=== PATIENT | male | born 1985 | race Caucasian/White ===

== ENCOUNTER 2021-11-30 19:45 | Inpatient (IN) ==
[2021-11-30] MEDS ORDERED: Isovue-370 500 ML BOTTLE IVP ONE (20:02)
[2021-11-30 20:59] LABS: Basophils # 0.1 K/mcL (0.0-0.2); Basophils % 0.5 %; Eosinophils % 0.1 %; Hematocrit 43.4 % (37.5-50.1); Hemoglobin 14.5 g/dL (12.9-16.9); Immature Granulocytes % 1.2 % (0-4); Lymphocytes # 1.2 K/mcL (0.6-4.6); Lymphocytes % 12.2 %; Mean Corpuscular HGB Conc 33.4 g/dL (31.6-35.5); Mean Corpuscular Hemoglobin 27.8 pg (28.0-33.3); Mean Corpuscular Volume 83.3 fL (83.0-100.0); Mean Platelet Volume 11.1 fL (9.4-12.4); Monocytes # 0.9 K/mcL (0.0-1.3); Monocytes % 9.5 %; Neutrophils # 7.3 K/mcL (1.6-8.9); Platelet Count 333 K/mcL (140-400); Red Blood Count 5.21 M/mcL (4.19-5.50); Red Cell Distribution Width 14.3 % (11.5-14.5); Segmented Neutrophils % 76.5 %; White Blood Count 9.5 K/mcL (4.3-11.1)
[2021-11-30 21:13] LABS: INR 1.3; Prothrombin Time 14.7 Seconds (9.4-12.1)
[2021-11-30 21:15] LABS: Activated Partial Thrombo Time 30.3 Seconds (26.0-36.0)
[2021-11-30 21:23] LABS: Alanine Aminotransferase 60 Units/L (7-52); Albumin 3.8 g/dL (3.5-5.7); Alkaline Phosphatase 78 Units/L (34-104); Aspartate Amino Transferase 57 Units/L (13-39); BUN/Creatinine Ratio 14 (6-26); Bilirubin,Direct 0.2 mg/dL (0.0-0.2); Bilirubin,Indirect 1.2 mg/dL (0.0-1.0); Bilirubin,Total 1.4 mg/dL (0.3-1.0); Blood Urea Nitrogen 13 mg/dL (6-20); Calcium 8.7 mg/dL (8.6-10.3); Carbon Dioxide 26 mEq/L (23-29); Chloride 99 mEq/L (98-107); Globulin 3.7 g/dL (2.4-3.5); Glucose 114 mg/dL (70-105); Osmolality,Calculated 291 (280-300); Potassium 4.4 mEq/L (3.5-5.1); Sodium 140 mEq/L (136-145); Total Protein 7.5 g/dL (6.4-8.9); Troponin I < 0.03 ng/mL (< 0.04); eGFR For African Americans > 60 (> 60); eGFR For Non-African Americans > 60 (> 60)
[2021-12-01 00:20] LABS: Influenza A PCR Negative (Negative); Influenza B PCR Negative (Negative); Resp. Syncytial Virus PCR Negative (Negative)
[2021-12-01 00:37] LABS: SARS-CoV-2 by PCR (In House) Positive (Negative)
[2021-12-01] MEDS ORDERED: D5% in Water 1,000 ML IVC PRN (01:18)
[2021-12-01] MEDS ORDERED: *HR* Dextrose 50 % in Water (Syg) 50 ML SYRINGE IVP PRN (01:18)
[2021-12-01] MEDS ORDERED: Dextrose Gel 15 GM/37.5 ML TUBE PO PRN ×2 (01:18)
[2021-12-01] MEDS ORDERED: Naloxone 0.4 MG/ML INJ IVP PRN (01:58)
[2021-12-01] MEDS ORDERED: *HR* HYDROcodone/Acet 5/325 mg TABLET PO PRN (01:58)
[2021-12-01] MEDS ORDERED: Melatonin 3 MG TABLET PO PRN (01:58)
[2021-12-01] MEDS ORDERED: Acetaminophen 325 MG TABLET PO PRN (01:58)
[2021-12-01] MEDS ORDERED: Ondansetron 4 MG/2 ML VIAL IVP PRN (01:58)
[2021-12-01] MEDS ORDERED: *HR* LORazepam 0.5 MG TABLET PO ONE (02:07)
[2021-12-01] MEDS ORDERED: Furosemide 20 MG/2 ML VIAL IVP ONE (02:07)
[2021-12-01 02:46] LABS: ABG Base Excess 2 mEq/L (-2 to 3); ABG HCO3 26 mEq/L (21-27); ABG Oxygen Saturation 95 % (95-98); ABG PCO2 39 mmHg (35-45); ABG PH 7.44 pH Units (7.32-7.45); ABG PO2 71 mmHg (85-104); ABG TCO2 28 mEq/L (20-26); Blood Gas Modality BiLevel
[2021-12-01] MEDS: Ipratropium 1 PUFF INHALER IH SCH ×6 (03:35→20:00)
[2021-12-01] MEDS: Artificial Tears SOLN 15 ML BOTTLE BOTH EYES SCH ×5 (05:03→20:06)
[2021-12-01 05:45] LABS: INR 1.3; Prothrombin Time 14.6 Seconds (9.4-12.1)
[2021-12-01 05:47] LABS: Activated Partial Thrombo Time 27.2 Seconds (26.0-36.0)
[2021-12-01 06:02] LABS: Alanine Aminotransferase 56 Units/L (7-52); Albumin 3.8 g/dL (3.5-5.7); Albumin/Globulin Ratio 1.2 (1.1-2.2); Alkaline Phosphatase 82 Units/L (34-104); Aspartate Amino Transferase 38 Units/L (13-39); BUN/Creatinine Ratio 17 (6-26); Bilirubin,Total 1.4 mg/dL (0.3-1.0); Blood Urea Nitrogen 14 mg/dL (6-20); Calcium 8.8 mg/dL (8.6-10.3); Carbon Dioxide 26 mEq/L (23-29); Chloride 106 mEq/L (98-107); Globulin 3.3 g/dL (2.4-3.5); Glucose 128 mg/dL (70-105); Lactate Dehydrogenase 363 Units/L (140-271); Magnesium 2.1 mg/dL (1.6-2.6); Osmolality,Calculated 284 (280-300); Phosphorous 4.2 mg/dL (2.7-4.5); Potassium 3.6 mEq/L (3.5-5.1); Sodium 136 mEq/L (136-145); Total Protein 7.1 g/dL (6.4-8.9); eGFR For African Americans > 60 (> 60); eGFR For Non-African Americans > 60 (> 60)
[2021-12-01 06:16] LABS: Ferritin 590 ng/mL (20-250)
[2021-12-01 06:22] LABS: Hepatitis B Surface Antigen Nonreactive (Nonreactive)
[2021-12-01 06:51] LABS: Hepatitis B Core IgM Nonreactive (Nonreactive)
[2021-12-01 06:52] LABS: Hepatitis C Virus Antibody Nonreactive (Nonreactive)
[2021-12-01 06:53] LABS: Hepatitis A Antibody IgM Nonreactive (Nonreactive)
[2021-12-01 06:55] LABS: Basophils % 0.4 %; Hematocrit 40.7 % (37.5-50.1); Immature Granulocytes % 1.3 % (0-4); Lymphocytes # 0.8 K/mcL (0.6-4.6); Lymphocytes % 11.3 %; Mean Corpuscular HGB Conc 33.9 g/dL (31.6-35.5); Mean Corpuscular Hemoglobin 28.3 pg (28.0-33.3); Mean Corpuscular Volume 83.4 fL (83.0-100.0); Mean Platelet Volume 11.4 fL (9.4-12.4); Monocytes # 0.6 K/mcL (0.0-1.3); Monocytes % 8.1 %; Neutrophils # 5.9 K/mcL (1.6-8.9); Platelet Count 353 K/mcL (140-400); Red Blood Count 4.88 M/mcL (4.19-5.50); Red Cell Distribution Width 14.4 % (11.5-14.5); Segmented Neutrophils % 78.9 %; White Blood Count 7.4 K/mcL (4.3-11.1)
[2021-12-01 06:58] LABS: Hemoglobin 13.8 g/dL (12.9-16.9)
[2021-12-01] MEDS: Insulin LISPRO 300 UNITS/3 ML VIAL SUBQ SCH ×3 (07:51→16:41)
[2021-12-01] MEDS: Furosemide 40 MG/4 ML VIAL IVP SCH (08:00)
[2021-12-01] MEDS: Saline Nasal Spray 44 ML BOTTLE NS SCH ×5 (08:01→20:07)
[2021-12-01] MEDS: Dexamethasone Sodium Phos/PF 10 MG/ML VIAL IVP SCH (08:01)
[2021-12-01] MEDS: Saliva Stimulant 44.3ml BOTTLE PO SCH ×5 (08:01→20:07)
[2021-12-01] MEDS: lisinopriL 20 MG TABLET PO SCH (08:02)
[2021-12-01] MEDS: Chlorhexidine Rinse 15 ML MOUTHWASH MM SCH ×2 (08:04→20:03)
[2021-12-01] MEDS: *HR* Enoxaparin 40 MG/0.4 ML SYRINGE SQ SCH ×2 (08:04→20:03)
[2021-12-01] MEDS: Cholecalciferol (D-3) 1,000 UNIT (25MCG) TABLET PO SCH (08:05)
[2021-12-01] MEDS: Multivit/Ca/Min/Fe/FA 1 TAB TABLET PO SCH (08:05)
[2021-12-01 09:33] LABS: Basophils % 0.4 %; Hematocrit 44.2 % (37.5-50.1); Hemoglobin 14.3 g/dL (12.9-16.9); Immature Granulocytes % 1.5 % (0-4); Lymphocytes % 13.5 %; Mean Corpuscular HGB Conc 32.4 g/dL (31.6-35.5); Mean Corpuscular Hemoglobin 27.6 pg (28.0-33.3); Mean Corpuscular Volume 85.2 fL (83.0-100.0); Mean Platelet Volume 11.3 fL (9.4-12.4); Monocytes # 0.6 K/mcL (0.0-1.3); Monocytes % 8.5 %; Neutrophils # 5.7 K/mcL (1.6-8.9); Platelet Count 354 K/mcL (140-400); Red Blood Count 5.19 M/mcL (4.19-5.50); Red Cell Distribution Width 14.4 % (11.5-14.5); Segmented Neutrophils % 76.1 %; White Blood Count 7.5 K/mcL (4.3-11.1)
[2021-12-01 09:37] LABS: C-Reactive Protein 48 mg/L (Less than 10)
[2021-12-02] MEDS: Ipratropium 1 PUFF INHALER IH SCH ×7 (00:26→23:24)
[2021-12-02 01:48] LABS: Basophils # 0.1 K/mcL (0.0-0.2); Basophils % 0.5 %; Hematocrit 41.4 % (37.5-50.1); Hemoglobin 13.8 g/dL (12.9-16.9); Immature Granulocytes % 1.7 % (0-4); Lymphocytes # 1.4 K/mcL (0.6-4.6); Lymphocytes % 12.2 %; Mean Corpuscular HGB Conc 33.3 g/dL (31.6-35.5); Mean Corpuscular Hemoglobin 28.1 pg (28.0-33.3); Mean Corpuscular Volume 84.3 fL (83.0-100.0); Monocytes # 1.2 K/mcL (0.0-1.3); Monocytes % 10.8 %; Neutrophils # 8.6 K/mcL (1.6-8.9); Platelet Count 417 K/mcL (140-400); Red Blood Count 4.91 M/mcL (4.19-5.50); Red Cell Distribution Width 14.3 % (11.5-14.5); Segmented Neutrophils % 74.8 %
[2021-12-02 01:49] LABS: White Blood Count 11.5 K/mcL (4.3-11.1)
[2021-12-02 02:06] LABS: Alanine Aminotransferase 70 Units/L (7-52); Albumin 3.7 g/dL (3.5-5.7); Albumin/Globulin Ratio 1.1 (1.1-2.2); Alkaline Phosphatase 68 Units/L (34-104); Aspartate Amino Transferase 47 Units/L (13-39); BUN/Creatinine Ratio 22 (6-26); Bilirubin,Total 1.4 mg/dL (0.3-1.0); Blood Urea Nitrogen 20 mg/dL (6-20); Calcium 8.8 mg/dL (8.6-10.3); Carbon Dioxide 28 mEq/L (23-29); Chloride 102 mEq/L (98-107); Globulin 3.3 g/dL (2.4-3.5); Glucose 126 mg/dL (70-105); Magnesium 2.3 mg/dL (1.6-2.6); Osmolality,Calculated 292 (280-300); Phosphorous 4.3 mg/dL (2.7-4.5); Potassium 3.5 mEq/L (3.5-5.1); Sodium 139 mEq/L (136-145); eGFR For African Americans > 60 (> 60); eGFR For Non-African Americans > 60 (> 60)
[2021-12-02] MEDS: Insulin LISPRO 300 UNITS/3 ML VIAL SUBQ SCH ×3 (08:39→21:00)
[2021-12-02] MEDS: Saline Nasal Spray 44 ML BOTTLE NS SCH ×4 (08:40→21:00)
[2021-12-02] MEDS: Artificial Tears SOLN 15 ML BOTTLE BOTH EYES SCH ×4 (08:41→20:59)
[2021-12-02] MEDS: Saliva Stimulant 44.3ml BOTTLE PO SCH ×4 (08:42→20:59)
[2021-12-02] MEDS: Dexamethasone Sodium Phos/PF 10 MG/ML VIAL IVP SCH (08:42)
[2021-12-02] MEDS: Chlorhexidine Rinse 15 ML MOUTHWASH MM SCH ×2 (08:42→21:00)
[2021-12-02] MEDS: Furosemide 40 MG/4 ML VIAL IVP SCH (08:42)
[2021-12-02] MEDS: lisinopriL 20 MG TABLET PO SCH (08:43)
[2021-12-02] MEDS: Multivit/Ca/Min/Fe/FA 1 TAB TABLET PO SCH (08:43)
[2021-12-02] MEDS: Cholecalciferol (D-3) 1,000 UNIT (25MCG) TABLET PO SCH (08:43)
[2021-12-02] MEDS: *HR* Enoxaparin 40 MG/0.4 ML SYRINGE SQ SCH ×2 (08:43→21:00)
[2021-12-03] MEDS: Ipratropium 1 PUFF INHALER IH SCH ×6 (03:31→23:41)
[2021-12-03 06:55] LABS: Basophils # 0.1 K/mcL (0.0-0.2); Basophils % 0.4 %; Eosinophils % 0.2 %; Hematocrit 42.8 % (37.5-50.1); Hemoglobin 13.8 g/dL (12.9-16.9); Immature Granulocytes % 1.5 % (0-4); Lymphocytes # 2.2 K/mcL (0.6-4.6); Lymphocytes % 18.6 %; Mean Corpuscular HGB Conc 32.2 g/dL (31.6-35.5); Mean Corpuscular Hemoglobin 27.3 pg (28.0-33.3); Mean Corpuscular Volume 84.6 fL (83.0-100.0); Mean Platelet Volume 10.9 fL (9.4-12.4); Monocytes # 1.5 K/mcL (0.0-1.3); Monocytes % 12.6 %; Neutrophils # 7.9 K/mcL (1.6-8.9); Platelet Count 408 K/mcL (140-400); Red Blood Count 5.06 M/mcL (4.19-5.50); Red Cell Distribution Width 14.3 % (11.5-14.5); Segmented Neutrophils % 66.7 %; White Blood Count 11.9 K/mcL (4.3-11.1)
[2021-12-03 07:16] LABS: Alanine Aminotransferase 97 Units/L (7-52); Albumin 3.7 g/dL (3.5-5.7); Albumin/Globulin Ratio 1.2 (1.1-2.2); Alkaline Phosphatase 64 Units/L (34-104); Aspartate Amino Transferase 53 Units/L (13-39); BUN/Creatinine Ratio 22 (6-26); Bilirubin,Total 1.4 mg/dL (0.3-1.0); Blood Urea Nitrogen 22 mg/dL (6-20); Calcium 8.7 mg/dL (8.6-10.3); Carbon Dioxide 29 mEq/L (23-29); Chloride 101 mEq/L (98-107); Glucose 97 mg/dL (70-105); Magnesium 2.2 mg/dL (1.6-2.6); Osmolality,Calculated 291 (280-300); Phosphorous 4.8 mg/dL (2.7-4.5); Potassium 3.1 mEq/L (3.5-5.1); Sodium 139 mEq/L (136-145); Total Protein 6.7 g/dL (6.4-8.9); eGFR For African Americans > 60 (> 60); eGFR For Non-African Americans > 60 (> 60)
[2021-12-03] MEDS: *HR* Enoxaparin 40 MG/0.4 ML SYRINGE SQ SCH ×2 (08:13→19:50)
[2021-12-03] MEDS: Multivit/Ca/Min/Fe/FA 1 TAB TABLET PO SCH (08:14)
[2021-12-03] MEDS: Cholecalciferol (D-3) 1,000 UNIT (25MCG) TABLET PO SCH (08:14)
[2021-12-03] MEDS: lisinopriL 20 MG TABLET PO SCH (08:14)
[2021-12-03] MEDS: Dexamethasone Sodium Phos/PF 10 MG/ML VIAL IVP SCH (08:14)
[2021-12-03] MEDS: Chlorhexidine Rinse 15 ML MOUTHWASH MM SCH ×2 (08:15→19:49)
[2021-12-03] MEDS: Saline Nasal Spray 44 ML BOTTLE NS SCH ×4 (08:15→19:49)
[2021-12-03] MEDS: Furosemide 40 MG/4 ML VIAL IVP SCH (08:15)
[2021-12-03] MEDS: Saliva Stimulant 44.3ml BOTTLE PO SCH ×4 (08:16→19:49)
[2021-12-03] MEDS: Insulin LISPRO 300 UNITS/3 ML VIAL SUBQ SCH ×3 (08:16→16:15)
[2021-12-03] MEDS: Artificial Tears SOLN 15 ML BOTTLE BOTH EYES SCH ×4 (08:16→19:49)
[2021-12-04] MEDS: Ipratropium 1 PUFF INHALER IH SCH ×3 (03:52→11:36)
[2021-12-04 07:56] VITALS: PULSE 94
[2021-12-04] MEDS: Insulin LISPRO 300 UNITS/3 ML VIAL SUBQ SCH ×2 (08:09→12:32)
[2021-12-04] MEDS: Furosemide 40 MG/4 ML VIAL IVP SCH (08:10)
[2021-12-04] MEDS: Saliva Stimulant 44.3ml BOTTLE PO SCH ×2 (08:10→12:04)
[2021-12-04] MEDS: Chlorhexidine Rinse 15 ML MOUTHWASH MM SCH (08:10)
[2021-12-04] MEDS: Artificial Tears SOLN 15 ML BOTTLE BOTH EYES SCH ×2 (08:10→12:04)
[2021-12-04] MEDS: Saline Nasal Spray 44 ML BOTTLE NS SCH ×2 (08:10→12:04)
[2021-12-04] MEDS: Dexamethasone Sodium Phos/PF 10 MG/ML VIAL IVP SCH (08:10)
[2021-12-04] MEDS: Cholecalciferol (D-3) 1,000 UNIT (25MCG) TABLET PO SCH (08:11)
[2021-12-04] MEDS: Multivit/Ca/Min/Fe/FA 1 TAB TABLET PO SCH (08:11)
[2021-12-04] MEDS: lisinopriL 20 MG TABLET PO SCH (08:11)
[2021-12-04] MEDS: *HR* Enoxaparin 40 MG/0.4 ML SYRINGE SQ SCH (08:11)
[2021-12-04 09:15] LABS: Basophils # 0.1 K/mcL (0.0-0.2); Basophils % 0.4 %; Eosinophils % 0.3 %; Hematocrit 45.3 % (37.5-50.1); Hemoglobin 14.6 g/dL (12.9-16.9); Immature Granulocytes % 1.8 % (0-4); Lymphocytes # 2.7 K/mcL (0.6-4.6); Lymphocytes % 23.6 %; Mean Corpuscular HGB Conc 32.2 g/dL (31.6-35.5); Mean Corpuscular Hemoglobin 27.1 pg (28.0-33.3); Mean Corpuscular Volume 84.2 fL (83.0-100.0); Mean Platelet Volume 11.3 fL (9.4-12.4); Monocytes # 1.4 K/mcL (0.0-1.3); Platelet Count 491 K/mcL (140-400); Red Blood Count 5.38 M/mcL (4.19-5.50); Segmented Neutrophils % 61.9 %; White Blood Count 11.4 K/mcL (4.3-11.1)
[2021-12-04 09:30] LABS: BUN/Creatinine Ratio 19 (6-26); Blood Urea Nitrogen 20 mg/dL (6-20); Carbon Dioxide 28 mEq/L (23-29); Chloride 101 mEq/L (98-107); Glucose 110 mg/dL (70-105); Osmolality,Calculated 293 (280-300); Potassium 3.1 mEq/L (3.5-5.1); Sodium 140 mEq/L (136-145); eGFR For African Americans > 60 (> 60); eGFR For Non-African Americans > 60 (> 60)
[2021-12-04 12:19] VITALS: BP 114/76; TEMP 97.3; O2SAT 95
== END 2021-12-04 14:21 | disposition home or self-care (01) | DRG 871 ==
LOC: EMEROOARM 19:45 → 3NENU 19:45 → OBSVTOIN 12-01 01:16 → 3NENU 12-01 03:00
PROVIDERS: ADMIT Internal Medicine; ATTEND Internal Medicine